=== PATIENT | female | born 1940 | race Caucasian/White ===

== ENCOUNTER 2017-02-16 09:31 | Emergency (ER) | payer MEDICARE, OTHER ==
[~2017-02-16] VITALS: Ht 160 cm; Wt 62.1 kg
[~2017-02-16 09:31] MED LIST: ALBU90OI INH; ASPI81CH PO; ASPI81EC PO; ATOR10 PO; Advair Hfa 230-12 GM; Advair Hfa 230-12 GM INH; CHOL10002 PO; DIAZ5; Diazepam2 MG PO; FLUSAL2505; FLUT.05NI; FLUT220OIA IH; FOLI400 PO; LOSA50 PO; MOME220I IH; MULTI VITAMIN1 EACH PO; MULVITMIND PO; NAPR220 PO; OXYC5 PO; PANT40 PO; PROM25 PO; Restoril15 MG PO; SPIHYD PO; Spironolactone1 EACH PO; TEMA15; TRAM50 PO; ZOLP10 PO; ZOLP5 PO
[2017-02-16 11:39] LABS: BASOPHILS ABSOLUTE AUTO 0.02 K/mm3 (0.00-0.23); BASOPHILS PERCENT AUTO 0 % (0-2); EOSINOPHILS ABSOLUTE AUTO 0.16 K/mm3 (0.00-0.68); EOSINOPHILS PERCENT AUTO 3 % (0-6); Hematocrit 35.5 % (33.0-51.0); IMMATURE GRAN ABSOLUTE AUTO 0.01 K/mm3 (0.00-0.10); IMMATURE GRAN PERCENT AUTO 0 % (0-1); LYMPHOCYTES ABSOLUTE AUTO 0.96 K/mm3 (0.84-5.20); LYMPHOCYTES PERCENT AUTO 17 % (21-46); MONOCYTES ABSOLUTE AUTO 0.66 K/mm3 (0.16-1.47); MONOCYTES PERCENT AUTO 12 % (4-13); Mean Corpuscular HGB 31.4 pg (26.0-34.0); Mean Corpuscular HGB Conc 33.8 g/dL (31.5-36.5); Mean Corpuscular Volume 93 fL (80-100); Mean Platelet Volume 8.6 fL (9.1-12.4); NEUTROPHILS ABSOLUTE AUTO 3.78 K/mm3 (1.96-9.15); NEUTROPHILS PERCENT AUTO 68 % (41-73); Platelet Count 206 K/mm3 (150-400); RDW Coefficient Variation 12.6 % (11.7-14.2); RDW Standard Deviation 42.8 fL (35.1-46.3); Red Blood Cell Count 3.82 M/mm3 (3.80-5.20); White Blood Cell Count 5.59 K/mm3 (4.00-11.30)
[2017-02-16 11:54] LABS: International Normalized Ratio 0.98; Prothrombin Time Results 10.2 Sec (9.7-11.5)
[2017-02-16 12:00] LABS: Alanine Aminotransfer (ALT/SGP 19 U/L (12-78); Albumin, Blood 3.6 g/dL (3.4-5.0); Albumin/Globulin Ratio 1.1 (0.8-1.8); Alk Phos 81 U/L (50-136); Anion Gap 8 mmol/L (6-16); Aspartate Aminotrans (AST/SGOT 21 U/L (12-37); Bilirubin, Total 0.4 mg/dL (0.1-1.0); Blood Urea Nitrogen 25 mg/dL (8-24); Bun/Creatinine Ratio 17.1 (12.0-20.0); CO2, Blood 27 mmol/L (21-32); Calcium, Blood 8.7 mg/dL (8.5-10.1); Chloride, Blood 101 mmol/L (98-108); Creatinine, Blood 1.46 mg/dL (0.40-1.00); Globulin, Blood 3.2 g/dL (2.2-4.0); Glomerular Filtration Rate 37 (60-); Glucose, Blood 100 mg/dL (70-99); Potassium, Blood 3.6 mmol/L (3.5-5.5); Sodium, Blood 136 mmol/L (136-145); Total Protein, Blood 6.8 g/dL (6.4-8.2); Troponin I <0.015 ng/mL (0.000-0.040)
[2017-02-16] MEDS ORDERED: PRED20 PO (12:45)
[2017-02-16] MEDS ORDERED: ALBU90OI INH (12:45)
== END 2017-02-16 13:13 | disposition home or self-care (01) ==
LOC: ER 09:31
PROVIDERS: Emergency Medicine
DX: J20.9 Acute bronchitis, unspecified (principal); Z88.5 Allergy status to narcotic agent; Z88.0 Allergy status to penicillin; Z88.8 Allergy status to other drugs, medicaments and biological substances; Z79.899 Other long term (current) drug therapy; Z79.82 Long term (current) use of aspirin; Z79.52 Long term (current) use of systemic steroids; Z90.710 Acquired absence of both cervix and uterus; Z90.89 Acquired absence of other organs; Z87.891 Personal history of nicotine dependence
CPT/HCPCS: 36415; 71046; 80053; 83880; 84484; 85025; 85610; 93005; 93010; 99284

== ENCOUNTER 2017-09-25 09:59 | Emergency (ER) | payer MEDICARE, OTHER ==
[~2017-09-25] VITALS: Ht 160 cm; Wt 61.2 kg
[~2017-09-25 09:59] MED LIST changes: +PRED20 PO
== END 2017-09-25 11:14 | disposition home or self-care (01) ==
LOC: ER 09:59
DX: R21 Rash and other nonspecific skin eruption (principal); Z88.5 Allergy status to narcotic agent; Z88.0 Allergy status to penicillin; Z88.8 Allergy status to other drugs, medicaments and biological substances; Z79.899 Other long term (current) drug therapy; Z79.82 Long term (current) use of aspirin; J45.909 Unspecified asthma, uncomplicated; Z87.891 Personal history of nicotine dependence
CPT/HCPCS: 99282

== ENCOUNTER → 2017-09-28 | Outpatient (CLI) | payer MEDICARE, OTHER | END | disposition home or self-care (01) | LOC: LAB SHORT 10:17 → PLD 10:17 | DX: L98.499 Non-pressure chronic ulcer of skin of other sites with unspecified severity (principal) | CPT/HCPCS: 88305; 88312 ==

== ENCOUNTER 2017-11-03 09:18 | Day surgery (SDC) | payer MEDICARE, OTHER ==
[~2017-11-03] VITALS: Ht 160 cm; Wt 63.3 kg
[2017-11-03] MEDS ORDERED: Hair, Skin & N1 EACH PO (11:34)
[2017-11-03] MEDS ORDERED: Flonase 0.05% N16 GM (11:34)
[2017-11-03] MEDS ORDERED: [UNRECOGNIZED DRUG - REMARK] PO (11:35)
[2017-11-03] MEDS ORDERED: NAPR220 PO (11:35)
== END 2017-11-03 17:20 | disposition home or self-care (01) ==
LOC: ORSCSDS 09:18 → NM 09:18 → ORSCSDS 10:30 → NM 10:30 → ORSCSDS 14:00
PROVIDERS: Surgery
PROC: 0HBV0ZZ Excision of Bilateral Breast, Open Approach (ICD-10-PCS; principal; 2017-11-03 13:45)
PROC: 07B60ZX Excision of Left Axillary Lymphatic, Open Approach, Diagnostic (ICD-10-PCS; principal; 2017-11-03 13:45)
DX: C50.212 Malignant neoplasm of upper-inner quadrant of left female breast (principal); Z40.01 Encounter for prophylactic removal of breast; D36.0 Benign neoplasm of lymph nodes; Z17.1 Estrogen receptor negative status [ER-]; I10 Essential (primary) hypertension; Z86.73 Personal history of transient ischemic attack (TIA), and cerebral infarction without residual deficits; Z79.899 Other long term (current) drug therapy
CPT/HCPCS: 38792; A9520; J1100; J2250; J2370; J2405; J3010; J7120; Q9968

== ENCOUNTER 2019-01-09 08:18 | Day surgery (SDC) | payer MEDICARE, OTHER ==
[~2019-01-09 08:18] MED LIST changes: +Flonase 0.05% N16 GM; +Hair, Skin & N1 EACH PO; +[UNRECOGNIZED DRUG - REMARK] PO
--- NOTE | 2019-01-09 11:47 | NUR ---
PT TOLERATED PO SNACK. GAVE TYLENOL FOR RLQ PAIN THAT WAS "GETTING BETTER" PER PT BEFORE RECEIVING 500MG TYLENOL PO. BANDAID REMAINS CDI. NO SWELLING OR BLEEDING NOTED. RAD PLANS TO DO A CT SCAN PRIOR TO DISCHARGE.
--- NOTE | 2019-01-09 12:32 | NUR ---
PT TAKEN TO RAD FOR CT SCAN AND PLANS TO DISCHARGE HER FROM RAD DEPARTMENT. Discharge instructions reviewed with patient. Patient verbalizes understanding. Copy given to patient to take home.Norris Paws warming gown applied.
== END 2019-01-09 23:14 | disposition home or self-care (01) ==
LOC: CT 08:18
DX: K76.89 Other specified diseases of liver (principal); C50.212 Malignant neoplasm of upper-inner quadrant of left female breast; I10 Essential (primary) hypertension; J45.909 Unspecified asthma, uncomplicated; E78.5 Hyperlipidemia, unspecified; Z17.1 Estrogen receptor negative status [ER-]; D63.1 Anemia in chronic kidney disease; Z79.82 Long term (current) use of aspirin; Z79.899 Other long term (current) drug therapy
CPT/HCPCS: 47000; 77012; 88307; 88313

== ENCOUNTER 2019-01-31 10:20 | Day surgery (SDC) | payer MEDICARE, OTHER ==
--- NOTE | 2019-01-31 13:47 | NUR ---
DISCHARGE PT DISCHARGED HOME FROM UNIT FOLLOWING REPEAT CT SCAN AT APROX 1448. PT GIVEN PRINTED AND VERBAL DISCHARGE INSTRUCTIONS AND VERBALIZED UNDERSTANDING OF THESE INSTRUCTIONS. WHEELCHAIR TO CAR.
[2019-02-20] MEDS ORDERED: TEMA15 PO (08:52)
[2019-02-20] MEDS ORDERED: HYDCHL12.5 PO (08:52)
[2019-02-20] MEDS ORDERED: ATOR20 PO (08:53)
[2019-02-20] MEDS ORDERED: MONT10T PO (08:53)
[2019-03-13] MEDS ORDERED: ASPI81CH PO (11:27)
[2019-03-13] MEDS ORDERED: VITAMIN D350 MCG PO (11:28)
== END 2019-01-31 23:33 | disposition home or self-care (01) ==
LOC: CT 10:20
DX: C78.7 Secondary malignant neoplasm of liver and intrahepatic bile duct (principal); C50.212 Malignant neoplasm of upper-inner quadrant of left female breast; I10 Essential (primary) hypertension; M19.90 Unspecified osteoarthritis, unspecified site; E78.5 Hyperlipidemia, unspecified; D50.9 Iron deficiency anemia, unspecified; J45.909 Unspecified asthma, uncomplicated; Z17.1 Estrogen receptor negative status [ER-]; Z86.73 Personal history of transient ischemic attack (TIA), and cerebral infarction without residual deficits; Z90.711 Acquired absence of uterus with remaining cervical stump; Z98.51 Tubal ligation status; Z79.82 Long term (current) use of aspirin; Z79.899 Other long term (current) drug therapy; Z88.0 Allergy status to penicillin; Z88.5 Allergy status to narcotic agent; Z88.8 Allergy status to other drugs, medicaments and biological substances
CPT/HCPCS: 47000; 77012; 88307; 88341; 88342

== ENCOUNTER 2019-02-05 09:16 | Emergency (ER) | payer MEDICARE, OTHER ==
[~2019-02-05] VITALS: Ht 160 cm; Wt 59.0 kg
[2019-02-05 10:24] LABS: BASOPHILS ABSOLUTE AUTO 0.03 K/mm3 (0.00-0.23); BASOPHILS PERCENT AUTO 0 % (0-2); EOSINOPHILS ABSOLUTE AUTO 0.19 K/mm3 (0.00-0.68); EOSINOPHILS PERCENT AUTO 2 % (0-6); Hematocrit 33.9 % (33.0-51.0); Hemoglobin 10.9 g/dL (11.5-16.0); IMMATURE GRAN ABSOLUTE AUTO 0.02 K/mm3 (0.00-0.10); IMMATURE GRAN PERCENT AUTO 0 % (0-1); LYMPHOCYTES ABSOLUTE AUTO 1.45 K/mm3 (0.84-5.20); LYMPHOCYTES PERCENT AUTO 17 % (21-46); MONOCYTES ABSOLUTE AUTO 0.75 K/mm3 (0.16-1.47); MONOCYTES PERCENT AUTO 9 % (4-13); Mean Corpuscular HGB 29.7 pg (26.0-34.0); Mean Corpuscular HGB Conc 32.2 g/dL (31.5-36.5); Mean Corpuscular Volume 92 fL (80-100); Mean Platelet Volume 8.8 fL (9.1-12.4); NEUTROPHILS ABSOLUTE AUTO 6.27 K/mm3 (1.96-9.15); NEUTROPHILS PERCENT AUTO 72 % (41-73); Platelet Count 269 K/mm3 (150-400); RDW Coefficient Variation 17.9 % (11.7-14.2); RDW Standard Deviation 60.6 fL (35.1-46.3); Red Blood Cell Count 3.67 M/mm3 (3.80-5.20); White Blood Cell Count 8.71 K/mm3 (4.00-11.30)
[2019-02-05 10:41] LABS: International Normalized Ratio 0.95; Prothrombin Time Results 10.1 Sec (9.7-11.5)
[2019-02-05 10:42] LABS: Albumin, Blood 3.3 g/dL (3.4-5.0); Albumin/Globulin Ratio 0.9 (0.8-1.8); Bilirubin, Total 0.5 mg/dL (0.1-1.0); Bun/Creatinine Ratio 15.7 (12.0-20.0); Calcium, Blood 8.8 mg/dL (8.5-10.1); Creatinine, Blood 1.15 mg/dL (0.40-1.00); Globulin, Blood 3.6 g/dL (2.2-4.0); Potassium, Blood 3.6 mmol/L (3.5-5.5); Total Protein, Blood 6.9 g/dL (6.4-8.2)
[2019-02-05] MEDS ORDERED: Percocet 5-3251 EACH PO (11:55)
[2019-02-05] MEDS ORDERED: ONDA4ODT MM (11:57)
[2019-02-20] MEDS ORDERED: HYDCHL12.5 PO (08:52)
[2019-02-20] MEDS ORDERED: TEMA15 PO (08:52)
[2019-02-20] MEDS ORDERED: ATOR20 PO (08:53)
[2019-02-20] MEDS ORDERED: MONT10T PO (08:53)
[2019-03-13] MEDS ORDERED: ASPI81CH PO (11:27)
[2019-03-13] MEDS ORDERED: VITAMIN D350 MCG PO (11:28)
== END 2019-02-05 12:11 | disposition home or self-care (01) ==
LOC: ER 09:16
PROVIDERS: Physician Assistant
DX: G89.18 Other acute postprocedural pain (principal); R10.11 Right upper quadrant pain; I10 Essential (primary) hypertension; D64.9 Anemia, unspecified; J45.909 Unspecified asthma, uncomplicated; Z88.5 Allergy status to narcotic agent; Z88.8 Allergy status to other drugs, medicaments and biological substances; Z88.0 Allergy status to penicillin; Z88.6 Allergy status to analgesic agent; Z79.899 Other long term (current) drug therapy; Z79.51 Long term (current) use of inhaled steroids; Z86.73 Personal history of transient ischemic attack (TIA), and cerebral infarction without residual deficits; Z87.891 Personal history of nicotine dependence; Z98.890 Other specified postprocedural states
CPT/HCPCS: 36415; 74177; 80053; 85025; 85610; 96361; 96374-59; 96375; 99284-25; J2405; J3010; J7030; Q9967

== ENCOUNTER 2019-02-24 08:45 | Day surgery (SDC) | payer MEDICARE, OTHER ==
[~2019-02-24] VITALS: Ht 160 cm; Wt 58.4 kg
[~2019-02-24 08:45] MED LIST changes: +ATOR20 PO; +HYDCHL12.5 PO; +MONT10T PO; +ONDA4ODT MM; +Percocet 5-3251 EACH PO; +TEMA15 PO
[2019-03-13] MEDS ORDERED: ASPI81CH PO (11:27)
[2019-03-13] MEDS ORDERED: VITAMIN D350 MCG PO (11:28)
== END 2019-02-24 11:20 | disposition home or self-care (01) ==
LOC: ORSCSDS 08:45
PROVIDERS: Surgery
PROC: 0DBH8ZX Excision of Cecum, Via Natural or Artificial Opening Endoscopic, Diagnostic (ICD-10-PCS; principal; 2019-02-24 10:00)
PROC: 0DBK8ZX Excision of Ascending Colon, Via Natural or Artificial Opening Endoscopic, Diagnostic (ICD-10-PCS; principal; 2019-02-24 10:00)
PROC: 0DJ08ZZ Inspection of Upper Intestinal Tract, Via Natural or Artificial Opening Endoscopic (ICD-10-PCS; principal; 2019-02-24 10:00)
DX: D50.9 Iron deficiency anemia, unspecified (principal); C18.0 Malignant neoplasm of cecum; D12.2 Benign neoplasm of ascending colon; C50.212 Malignant neoplasm of upper-inner quadrant of left female breast; C78.7 Secondary malignant neoplasm of liver and intrahepatic bile duct; I10 Essential (primary) hypertension; Z86.73 Personal history of transient ischemic attack (TIA), and cerebral infarction without residual deficits; E78.5 Hyperlipidemia, unspecified; J45.909 Unspecified asthma, uncomplicated; Z79.82 Long term (current) use of aspirin; Z79.899 Other long term (current) drug therapy
CPT/HCPCS: 88305; J2704; J7120

== ENCOUNTER 2019-03-01 05:57 | Emergency (ER) | payer MEDICARE, OTHER ==
[~2019-03-01] VITALS: Ht 160 cm; Wt 58.5 kg
[2019-03-01] MEDS ORDERED: BENZ100A PO (06:49)
[2019-03-01 07:41] LABS: BASOPHILS ABSOLUTE AUTO 0.03 K/mm3 (0.00-0.23); BASOPHILS PERCENT AUTO 0 % (0-2); EOSINOPHILS ABSOLUTE AUTO 0.09 K/mm3 (0.00-0.68); EOSINOPHILS PERCENT AUTO 1 % (0-6); Hematocrit 31.1 % (33.0-51.0); Hemoglobin 10.1 g/dL (11.5-16.0); IMMATURE GRAN ABSOLUTE AUTO 0.03 K/mm3 (0.00-0.10); IMMATURE GRAN PERCENT AUTO 0 % (0-1); LYMPHOCYTES ABSOLUTE AUTO 0.95 K/mm3 (0.84-5.20); LYMPHOCYTES PERCENT AUTO 10 % (21-46); MONOCYTES ABSOLUTE AUTO 0.89 K/mm3 (0.16-1.47); MONOCYTES PERCENT AUTO 9 % (4-13); Mean Corpuscular HGB 29.2 pg (26.0-34.0); Mean Corpuscular HGB Conc 32.5 g/dL (31.5-36.5); Mean Corpuscular Volume 90 fL (80-100); Mean Platelet Volume 8.8 fL (9.1-12.4); NEUTROPHILS ABSOLUTE AUTO 7.77 K/mm3 (1.96-9.15); NEUTROPHILS PERCENT AUTO 80 % (41-73); Platelet Count 330 K/mm3 (150-400); RDW Coefficient Variation 16.2 % (11.7-14.2); RDW Standard Deviation 53.4 fL (35.1-46.3); Red Blood Cell Count 3.46 M/mm3 (3.80-5.20); White Blood Cell Count 9.76 K/mm3 (4.00-11.30)
[2019-03-01 07:58] LABS: Albumin, Blood 2.8 g/dL (3.4-5.0); Albumin/Globulin Ratio 0.7 (0.8-1.8); Bilirubin, Total 0.4 mg/dL (0.1-1.0); Bun/Creatinine Ratio 16.4 (12.0-20.0); Calcium, Blood 8.8 mg/dL (8.5-10.1); Creatinine, Blood 1.16 mg/dL (0.40-1.00); Globulin, Blood 4.1 g/dL (2.2-4.0); Potassium, Blood 3.3 mmol/L (3.5-5.5); Total Protein, Blood 6.9 g/dL (6.4-8.2)
[2019-03-01] MEDS ORDERED: FENT50TP TOP (09:27)
--- NOTE | 2019-03-01 10:52 | NUR ---
ED Palliative Care Consult: Spoke with Dr Alvarez and discussed case. Pt has colon mass that has significantly increased in size over the last month and multiple lover masses. Pt is resting on gurney and reports a tolerable 3/10 pain in her abdomen. Pt's is present. Dr Alvarez has ordered Fentanyl Patch and currently in place. Listened as Pt and report plan to see Dr Rick and Dr Pinedo tomorrow. Pt reports just prior to this RN arriving her and her had a discussion regarding receiving chemo treatment. Pt is leaning towards not receiving treatment and is still on the fence regarding surgery with Dr Pinedo. Pt reports her goals are to focus on quality of life. Suggested before making decision, listening to Dr Rick and Dr Pinedo's recommendations. Discussed Hospice as an option if she decides against treatment. Educated on hospice philosophy with V/U made by both Pt and . Encouraged Pt and to consider terminologist plan and the possibility of needing extra caregiving support as the disease progresses. Pt and inquire about "right to ". Instructed this program can take some time to initiate and program is not available in [place]. Closest is [facility] and suggested further research through the internet. Educated Pt and on pain management and the importance of keeping journal of breakthrough pain medication. Instructed Pt to make Dr Rick aware of Fentanyl patch and for him to consider continued prescription for pain management. Pt and expresses appreciation of visit. Palliative Care contact information given to Pt and instructed to call with any questions or concerns. Palliative Care will remain available.
[2019-03-13] MEDS ORDERED: ASPI81CH PO (11:27)
[2019-03-13] MEDS ORDERED: VITAMIN D350 MCG PO (11:28)
== END 2019-03-01 10:41 | disposition home or self-care (01) ==
LOC: ER 05:57
PROVIDERS: Emergency Medicine
DX: C18.9 Malignant neoplasm of colon, unspecified (principal); C78.7 Secondary malignant neoplasm of liver and intrahepatic bile duct; I10 Essential (primary) hypertension; D64.9 Anemia, unspecified; Z88.0 Allergy status to penicillin; Z88.5 Allergy status to narcotic agent; Z88.6 Allergy status to analgesic agent; Z88.8 Allergy status to other drugs, medicaments and biological substances; Z79.899 Other long term (current) drug therapy; Z86.73 Personal history of transient ischemic attack (TIA), and cerebral infarction without residual deficits; Z85.3 Personal history of malignant neoplasm of breast; Z87.891 Personal history of nicotine dependence
CPT/HCPCS: 74177; 80053; 83690; 85025; 96374-59; 96375; 96376; 99284-25; J2405; J3010; Q9967

== ENCOUNTER 2019-03-16 07:24 | Day surgery (SDC) | payer MEDICARE, OTHER ==
[~2019-03-16] VITALS: Ht 160 cm; Wt 58.0 kg
[~2019-03-16 07:24] MED LIST changes: +BENZ100A PO; +FENT50TP TOP; +VITAMIN D350 MCG PO
[2019-03-16] MEDS ORDERED: PROM25 PO (08:08)
--- NOTE | 2019-03-16 08:14 | NUR ---
PT ADMITTED TO [facility]. AGREES WITH PLANNED SURGERY. LUNG SOUNDS CLEAR.
--- NOTE | 2019-03-16 12:18 | NUR ---
Discharge instructions reviewed with patient. Patient verbalizes understanding. Copy given to patient to take home. Patient States Post-Procedure ride home has been arranged. Discharged via wheelchair to private car for ride home.
== END 2019-03-16 12:06 | disposition home or self-care (01) ==
LOC: ORSCMMR 07:24 → ORD 08:45 → ORSCMMR 12:06
PROVIDERS: Surgery
PROC: 05H533Z Insertion of Infusion Device into Right Subclavian Vein, Percutaneous Approach (ICD-10-PCS; principal; 2019-03-16 08:45)
PROC: B5161ZA Fluoroscopy of Right Subclavian Vein using Low Osmolar Contrast, Guidance (ICD-10-PCS; principal; 2019-03-16 08:45)
DX: C18.0 Malignant neoplasm of cecum (principal); I10 Essential (primary) hypertension; J45.909 Unspecified asthma, uncomplicated; Z86.73 Personal history of transient ischemic attack (TIA), and cerebral infarction without residual deficits; Z79.899 Other long term (current) drug therapy; Z79.82 Long term (current) use of aspirin
CPT/HCPCS: 77001; C1788; J0690; J1100; J1642; J2250; J2405; J2704; J3010; J7120